=== PATIENT | female | born 1950 | race Caucasian/White ===

== ENCOUNTER 2017-10-16 09:10 | Day surgery (SDC) | payer MEDICARE, OTHER, SELFPAY ==
--- NOTE | 2017-10-08 09:45 | EKG12_ITS ---
Test Reason : PRE OP Blood Pressure : / mmHG Vent. Rate : 075 BPM Atrial Rate : 075 BPM P-R Int : 166 ms QRS Dur : 080 ms QT Int : 386 ms P-R-T Axes : 073 067 058 degrees QTc Int : 431 ms Normal sinus rhythm Normal ECG Confirmed by MARLEN NOVOA, ANNA ([id number]), magazine editor RHIANNA MIGUEL ([id number]) on 10/12/2017 2:51:55 PM Referred By: ORION Confirmed By:ANNA GEE MD
[2017-10-08 10:25] LABS: Hematocrit 46.9 % (37-47); Hemoglobin 14.5 g/dl (12.0-15.0); Mean Corp Hgb Conc 30.9 g/gl (32-36); Mean Corpuscular Hgb 28.2 pg (27.0-32.0); Mean Corpuscular Volume 91.2 fL (81-99); Mean Platelet Vol. 10.5 fl (6.2-12.0); Platelet Count 345 K/mm3 (150-450); RBC Distribution Width CV 14.5 % (11.6-14.6); RBC Distribution Width SD 48.4 fl (35.1-43.9); Red Blood Count 5.14 M/mm3 (4.2-5.4); White Blood Count 6.5 K/mm3 (4.4-11.0)
[2017-10-08 10:32] LABS: Scan Indicated on CBC? Y/N NO
[2017-10-08 10:54] LABS: Anion Gap 8 (5-15); BUN 25 mg/dL (7-18); BUN/Creat Ratio 31.6 RATIO (10-20); Calcium,Total 9.1 mg/dL (8.5-10.1); Chloride 105 mmol/L (98-107); Creatinine, Serum 0.79 mg/dL (0.55-1.02); EST Glomerular Filtration Rate 77 mL/min (>60); Est Glom Filt Rate - Afr Amer 93 mL/min (>60); Glucose 77 mg/dL (70-110); Potassium 4.1 mmol/L (3.5-5.1); Sodium Level 142 mmol/L (136-145)
--- NOTE | 2017-10-16 | LES_PTH ---
PATIENT: GOYO WAGNER LOC: [facility] U#:[id number] AGE/SX: 66/F ROOM: RE10/16/[address]: Dr. Robbin Narvaez MD : [id number] BED: DIS: 10/16/2017 SPEC #: [id number] RECD: 10/16/17 12:31 STATUS: NATALIA ROMERO #: [id number] NILAY: 10/16/17 00:[address]: Robbin Narvaez DEPT: SURGICAL PATHOLOGY RECD BY: Reva Mello ENTERED: 10/16/17 13:12 SP TYPE: Lesion OTHR DR: Dr. Julián Crowder MD Tissues: Skin of nose, NOS Procedures: Frozen Section (charge) Surgery Specimen Level IV Frozen (no charge) HEADER OPERATION: Excision, lesion, nasal, frozen section, reconstruction PRE-OP DIAGNOSIS: Basal cell carcinoma - nose TISSUE SUBMITTED: Basal cell carcinoma ? nose, suture at 12 o?clock FROZEN SECTION DIAGNOSIS Skin lesion of nose, biopsy: Ulcerated basal cell carcinoma, completely excised. AM:lalito 10/16/17 MICROSCOPIC DIAGNOSIS Skin lesion of nose, excisional biopsy: Ulcerated basal cell carcinoma, completely excised. Solar elastosis. AM:lalito 10/19/17 MICROSCOPIC DESCRIPTION Slides are reviewed. GROSS DESCRIPTION Received fresh for frozen section consultation labeled with the patient's name is a specimen designated basal cell carcinoma of nose. The specimen consists of a discoid fragment of light hussein excised skin measuring 1.5 x 1.2 x 0.2 cm. The 12 o?clock half is inked in black ink and the 6 o?clock half is inked in blue ink. The specimen is serially sectioned and totally submitted in one cassette for frozen section consultation. / AM:lalito 10/16/17 TC:0 CPT: 89212, 82214
[2017-10-16 09:43] VITALS: BP 145/86; PULSE 94; RESP 18; TEMP 36.8; O2SAT 99; BMI 27.7
--- NOTE | 2017-10-16 11:56 | PCM.DC ---
You will use the following diet at home:: Regular Discharge Activity: Return to Normal Activity Additional Activity Instructions:: Remove dressing tomorrow. Apply neosporin to sutures twice a day. May get sutures wet on Thursday. Allergies/Adverse Reactions: Allergies No Known Allergies Allergy (Verified 10/09/17 14:13) Medications to take at Discharge Acetaminophen [Tylenol] 1,000 mg PO Q8H PRN PRN tab 08/10/17 Metoprolol Tartrate [Lopressor (Beta Deborah)] 25 mg PO BID 10/09/17 Montelukast [Singulair] 10 mg PO DAILY 10/09/17 Primary Care Physician: Julián Crowder Chi, MD [Primary Care Provider] -
[2017-10-16] MEDS: Mupirocin Ointment 22gm Tube 1 APPLIC (13:07)
--- NOTE | 2017-10-16 13:37 | OP.PCM_ITS ---
Problem List (1) Basal cell carcinoma of dorsum of nose Status: Chronic Report of Operation Date of Procedure: 10/16/17 Pre-Operative Diagnosis: basal cell carcinoma, nasal dorsum Post-Operative Diagnosis: basal cell carcinoma, nasal dorsum Surgery/Procedure Performed:: excision 1 x 1cm basal cell carcinoma of nose Type of Anesthesia:: General Description of Procedure: on the day of the procedure, after appropriate informed consent was obtained, the patient was brought to the operating room and placed in supine position on the operating room table. the anesthesiologist attempted to intubate with a 6.5 endotracheal tube; this would not pass the subglottis. a 5.5 tube was then attempted again with the glide scope and would not pass the subglottis. given the previous tracheotomy, it was deemed necessary to stop attempting to intubate with her subglottic stenosis. air exchange was easy with a mask airway. we aborted the vocal cord injection was aborted. the LMA was secured, tegaderm was placed on the eyes after lubrication. the 1 x 1 cm basal cell carcinoma on the right nasal dorsum was injected with lidocaine/epinephrine. the area was prepped and draped in sterile fashion. the lesion was demarcated with 4mm margins. a [place] blade was used to excise the lesion with margins. bleeding was controlled with the bipolar. the frozen section of the given lesion was reported as margins negative, completely excised. please see dr kacey red's note for the reconstruction details. the patient Grafts/Implants Used: none - Admit VTE Documentation VTE Present on Admission: No VTE Mechan Device Prophylaxis: SCD's Reason prophylaxis not ordered:: Treatment Not Indicated
[2017-10-16 13:38] VITALS: BP 133/83; BP 145/86; PULSE 85; RESP 16; TEMP 36.6; O2SAT 97
--- NOTE | 2017-10-16 13:42 | PCM.OPRPT ---
Report of Operation Date of Procedure: 10/16/17 Pre-Operative Diagnosis: Nasal defect of the dorsum secondary to excised basal cell carcinoma Post-Operative Diagnosis: same Surgery/Procedure Performed:: Local flap reconstruction of nasal defect (1.5 x 1.2 cm) Description of Surgical Findings:: as above Type of Anesthesia:: General Anesthesiologist: Paresh Ratliff Specimen's removed: basal cell carcinoma nose. Drains: none Estimated Blood Loss (mL): minimal Description of Procedure: The patient was taken to the OR on 10/16/17. She was given sufficient general anesthesia. She had excision of the nasal basal cell carcinoma performed by Dr. Narvaez. Please see his operative note for details. The size of the defect was 1.5 x 1.2 cm. The margins were negative according to pathology. I fashioned a glabellar flap. This was incised with a 15 blade. Hemostasis was achieved with bipolar cautery. The flap was released and brought down to the defect attached laterally on the left side. The flap was thinned sharply on the right lateral edge. It was cut to the appropriate size to fill the defect. 4-0 chromic was used to approximate the subcutaneous tissue of the flap and [place] nasal tissue. 4-0 chromic was also used to approximate the subcutaneous tissue at the donor site. The skin was then closed around the flap and donor site with interrupted 6-0 nylon. Bactroban and a pressure dressing were then applied. The patient was awoken and brought to the recovery room in stable condition. Blood loss minimal, replacement none. Sponge needle and instrument count were correct at the end of the procedure.
[2017-10-16 13:45] VITALS: BP 134/88; BP 145/86; PULSE 83; RESP 16; O2SAT 93
[2017-10-16 14:00] VITALS: BP 141/98; BP 145/86; PULSE 89; RESP 16; TEMP 36.6; O2SAT 94
[2017-10-16 15:14] VITALS: BP 145/86
== END 2017-10-16 15:26 | disposition home or self-care (01) ==
LOC: SDC 09:11 → AC 09:12
PROVIDERS: Otolaryngology; Family Provider Family Medicine Geriatric Medicine; PCP Family Medicine Geriatric Medicine; Visit Provider Otolaryngology
PROC: (CPT 14060; principal; 2017-10-16 11:15)
DX: C44.311 Basal cell carcinoma of skin of nose (principal); L57.8 Other skin changes due to chronic exposure to nonionizing radiation; J38.01 Paralysis of vocal cords and larynx, unilateral; R13.14 Dysphagia, pharyngoesophageal phase; R49.0 Dysphonia; R00.0 Tachycardia, unspecified; J45.909 Unspecified asthma, uncomplicated; G47.30 Sleep apnea, unspecified; Z86.011 Personal history of benign neoplasm of the brain; Z79.899 Other long term (current) drug therapy; J38.6 Stenosis of larynx
CPT/HCPCS: 00300; 11643; 14060; 36415; 80048; 85027; 88305; 88331; J7120; J2405

== ENCOUNTER → 2017-11-09 12:31 | Outpatient (CLI) | payer MEDICARE, OTHER, SELFPAY ==
--- NOTE | 2017-11-09 12:45 | RAD_ITS ---
STUDY: X-RAY - PELVIS AND RIGHT HIP REASON FOR EXAM: Female, 66 years old. Right hip pain. TECHNIQUE: Radiological exam, hip, unilateral, with pelvis when performed; 1 view COMPARISON: None. FINDINGS: There is a non-specific bowel gas pattern. Normal visualized soft tissue structures. Disc space narrowing and mild levoscoliosis of the lower lumbar spine. There is narrowing with cortical sclerosis and osteophyte formation of the sacroiliac joint consistent with degenerative osteoarthritic changes. Normal bilateral superior and inferior pubic rami. There is narrowing with sclerosis of the pubic symphysis. Normal bilateral ischial tuberosities. Normal visualized femoral head. Normal acetabulum. There is moderate articular joint space narrowing of the hip. IMPRESSION: Moderate joint space narrowing of both hip joints. Electronically Signed: Freddie Parker MD at 8:24 EST Tel [phone], Service support , STUDY: X-RAY - PELVIS REASON FOR EXAM: Female, 66 years old. ] Pain. TECHNIQUE: One view of the pelvis was obtained. COMPARISON: None. FINDINGS: There is a non-specific bowel gas pattern. There are multiple calcified phleboliths. Degenerative changes of the lower lumbar spine. Normal bilateral iliac wings, sacroiliac joints and visualized sacrum. Normal visualized bilateral superior and inferior pubic rami. There is narrowing with sclerosis of the pubic symphysis. Normal ischial tuberosities. Normal visualized right femoral head. Normal right acetabulum. There is moderate articular joint space narrowing of the right hip. Normal visualized left femoral head. Normal left acetabulum. There is moderate articular joint space narrowing of the left hip. RAD/Hip 2-3 Views with Pelvis IMPRESSION: Degenerative changes. Electronically Signed: Freddie Parker MD at 8:26 EST Tel [phone], Service support ,
== END ==
PROVIDERS: Family Provider Family Medicine Geriatric Medicine; PCP Family Medicine Geriatric Medicine; Visit Provider Family Medicine Geriatric Medicine
DX: M16.11 Unilateral primary osteoarthritis, right hip (principal)
CPT/HCPCS: 73502

== ENCOUNTER → 2017-12-01 13:54 | Outpatient (CLI) | payer MEDICARE, OTHER, SELFPAY ==
[2017-12-01 15:12] LABS: Absolute Lymphocyte Count 2.03 X10^3/ul (0.83-4.51); Absolute Neutrophil Count 7.3 X10^3/uL (2.0-7.7); Basophil# 0.03 X10^3/uL; Basophil% 0.3 % (0-1); Eosinophil# 0.15 X10^3/uL; Eosinophils% 1.4 % (0-5); Hematocrit 48.4 % (37-47); Hemoglobin 15.5 g/dl (12.0-15.0); Lymphocyte # 2.03 X10^3/ul (4.0); Lymphocyte % 19.5 % (19-41); Mean Corpuscular Hgb 28.8 pg (27.0-32.0); Mean Corpuscular Volume 89.8 fL (81-99); Mean Platelet Vol. 10.6 fl (6.2-12.0); Monocyte# 0.88 X10^3/uL; Monocyte% 8.5 % (0-10); Neutrophil # 7.27 X10^3/uL (2.7-7.7); Platelet Count 380 K/mm3 (150-450); RBC Distribution Width CV 15.6 % (11.6-14.6); RBC Distribution Width SD 51.1 fl (35.1-43.9); Red Blood Count 5.39 M/mm3 (4.2-5.4); White Blood Count 10.4 K/mm3 (4.4-11.0)
[2017-12-01 15:13] LABS: POSITIVE COUNT NO; POSITIVE DIFFERENTIAL NO; POSITIVE MORPHOLOGY NO
[2017-12-01 15:33] LABS: ALB/GLOB Ratio 1.1 RATIO (0.9-2.4); AST(SGOT) 15 U/L (15-37); Alanine Aminotransfer ALT/SGPT 13 U/L (13-56); Alkaline Phosphatase 141 U/L (45-117); Anion Gap 7 (5-15); BUN 27 mg/dL (7-18); BUN/Creat Ratio 35.3 RATIO (10-20); Calcium,Total 9.4 mg/dL (8.5-10.1); Chloride 104 mmol/L (98-107); Creatinine, Serum 0.76 mg/dL (0.55-1.02); EST Glomerular Filtration Rate 80 mL/min (>60); Est Glom Filt Rate - Afr Amer 97 mL/min (>60); Globulin 3.8 g/dL (2.2-4.2); Glucose 90 mg/dL (74-106); Potassium 4.2 mmol/L (3.5-5.1); Protein, Total 7.8 g/dL (6.4-8.2); Sodium Level 140 mmol/L (136-145); Thyroid Stim Hormone (TSH) 2.24 uIU/mL (0.358-3.74)
[2017-12-02 09:38] LABS: Vitamin D,25 Hydroxy 35.3 ng/mL (29.95-100.01)
== END ==
PROVIDERS: Family Provider Family Medicine Geriatric Medicine; PCP Family Medicine Geriatric Medicine; Visit Provider Family Medicine Geriatric Medicine
DX: E55.9 Vitamin D deficiency, unspecified (principal); R53.83 Other fatigue
CPT/HCPCS: 36415; 80053; 82306; 84443; 85025

== ENCOUNTER → 2017-12-01 14:28 | Outpatient (CLI) | payer MEDICARE, OTHER, SELFPAY ==
--- NOTE | 2017-12-01 14:30 | CT_ITS ---
STUDY: CT BRAIN WITHOUT CONTRAST REASON FOR EXAM: Female, 67 years old. Follow-up of meningioma. The patient had surgical removal of the meningioma May 2017. RADIATION DOSAGE (If Supplied By Facility): CTDIvol = ( 44.99 ) mGy, DLP = ( 745.49 ) mGycm TECHNIQUE: Transaxial CT imaging of the brain was performed without administration of intravenous contrast material. Multiplanar reformations are submitted for interpretation. Individualized dose optimization techniques were used for this CT. COMPARISON: Prior comparable comparison studies are not available for review at this time. FINDINGS: Normal soft tissue structures. Patient has had a right-sided suboccipital craniectomy. There has been a cranioplasty with placement of a plate across the craniectomy site. Normal size ventricles and extra-axial spaces for the patient's age. There are areas of decreased attenuation within the white matter tracts of the supratentorial brain, consistent with microvascular disease changes. Normal basal ganglia and thalami. Normal brainstem. Normal cerebellum. There is no intracranial hemorrhage. There is mild atherosclerotic calcification of intracranial arteries. Normal visualized paranasal sinuses. CT/Brain/Head without Contrast IMPRESSION: 1. Chronic involutional changes of the brain. 2. Postoperative changes of the brain. There is no CT evidence to suggest residual or recurrent meningioma. Electronically Signed: Tracy Trinidad MD at 14:58 EDT , Service support ,
== END ==
PROVIDERS: Family Provider Family Medicine Geriatric Medicine; PCP Family Medicine Geriatric Medicine; Visit Provider Family Medicine Geriatric Medicine
DX: D32.0 Benign neoplasm of cerebral meninges (principal); E55.9 Vitamin D deficiency, unspecified; R53.83 Other fatigue
CPT/HCPCS: 36415; 70450; 80053; 82306; 84443; 85025

== ENCOUNTER → 2018-04-01 07:34 | Outpatient (CLI) | payer MEDICARE, OTHER, SELFPAY ==
--- NOTE | 2018-04-01 11:24 | BRONCHALL ---
Bronchoprovocation Challenge - Bronchoprovocation Challenge Bronchoprovocation Challenge: BRONCHOPROVOCATION STUDY INTERPRETATION Brief HPI: Patient is a 67 year old fe-male, currently under the care of Carlee Cabral, who presents to [facility] for a bronchoprovocation study secondary to diagnosis of asthma. Respiratory therapist reports good effort and reproducible results. Interpretation: Initial spirometry showed no large airways obstructive ventilatory defect. The patient was then given increasingly concentrated doses of methacholine in a stepwise fashion, using a modified ATS protocol. The patient had a significant reduction in FEV1 by 32% and a calculated PD20 of 0.094. Impression: Positive bronchoprovocation study. This IS CONSISTENT with the diagnosis of asthma.
--- NOTE | 2018-04-01 11:27 | BRONCHALL_ITS ---
Bronchoprovocation Challenge - Bronchoprovocation Challenge Bronchoprovocation Challenge: BRONCHOPROVOCATION STUDY INTERPRETATION Brief HPI: Patient is a 67 year old fe-male, currently under the care of Carlee Cabral, who presents to [facility] for a bronchoprovocation study secondary to diagnosis of asthma. Respiratory therapist reports good effort and reproducible results. Interpretation: Initial spirometry showed no large airways obstructive ventilatory defect. The patient was then given increasingly concentrated doses of methacholine in a stepwise fashion, using a modified ATS protocol. The patient had a significant reduction in FEV1 by 32% and a calculated PD20 of 0.094. Impression: Positive bronchoprovocation study. This IS CONSISTENT with the diagnosis of asthma.
== END ==
PROVIDERS: Family Provider Family Medicine Geriatric Medicine; PCP Family Medicine Geriatric Medicine
DX: J45.40 Moderate persistent asthma, uncomplicated (principal)
CPT/HCPCS: 94070; 95070; J3490; J7674

== ENCOUNTER 2018-05-17 11:30 | Outpatient (RCR) | payer MEDICARE, OTHER, SELFPAY ==
--- NOTE | 2018-03-19 17:19 | HP.PTEVAL_ITS ---
Patient's Visit Information GOYO WAGNER is a 67 year old F referred to Physical Therapy by Julián Crowder with a diagnosis of OA AND PAIN RIGHT HIP. Date of Evaluation: 03/19/18 Physical Therapist: Keke Church - Visit Plan Frequency: 2-3x /Week Duration: 4-6 Weeks Plan: AQUATIC THERAPY FOR PAIN RELEIF, POSTURE CORRECTION/STRENGTHENING, INSTRUCTION IN APPROPRIATE BODY MECHANICS AND ACTIVITY MODIFICATIONS. DLS STARTING WITH A NEUTRAL SPINE PROGRESSING ROM TOLERATED. INDIGO LE ROM, STRETCHING AND STRENGTHENING. HEP INSTRUCTION. - Subjective Subjective: Work/Leisure: RETIRED. Disability: NO. Present symptoms: RIGHT HIP PAIN AND POSTERIOR THIGH PAIN. SPASMS UP BACK AND DOWN INTO THIGH RIGHT ONLY. PATIENT REPORTS SHE IS EXHAUSED FROM IT. NO RIGHT LE NUMBNESS OR TINGLING. LLE FEELS NORMAL. Present since: SEP 2017. Pain Scale: WORST 8/ 10, LEAST 2/10. Currently: 10/31. Commenced as a result of: BRAIN TUMOR SURGERY JUN 17 2017. Symptoms at onset: RIGHT HIP. Worse: WALKING, PROLONGED SITTING. Better: MAYBE PUTTING WEIGHT ON RIGHT HIP IN SITTING OR LYING. Disturbed sleep: YES. Previous history/Previous treatment: UNREMARKABLE BUT STATES SHE KNEW SHE HAD ARTHRITIS BUT DIDN'T REALLY HAVE ANY SPECIFIC PAIN. Coughing/sneezing/straining: NEGATIVE. Gait: PATIENT REPORTS SHE HAS A CANE AND SHE USES IT WITH PROLONGED WALKING USUALLY BUT NOT ALWAYS. LEFT IT IN HER CAR TODAY. WALKING PUTS A LOT OF STRESS ON HER RIGHT BACK, HIP AND KNEE. Difficulty initiating urinatin: NO. Accidents: NO. Unexplained weight loss: NO. Imaging: OCT 2017 RIGHT HIP X-RAY: Moderate joint space narrowing of both hip joints. PMH: DX'D WITH BRAIN TUMOR MAY 2017 FOLLOWED BY SURGERY FOR REMOVAL. NON CANCEROUS. SLEEP APNEA. Recent major surgery: RECENT BRAIN SURGERY FOLLOWED BY HOSPITALIZATIONS X ABOUT 2 MONTHS. SHE REPORTS SHE WAS ON A VENTILATOR AND TRACH AFTER SURGERY. SOCIAL: LIVES ALONE. - Objective Sitting/Standing Posture: POOR. INCREASED KYPHOSIS. Lordosis: REDUCED. Lateral shift: NO. Relevant shift: N/A. Active Correction of posture: NE. Other Observations: INDEP GAIT INTO PT WITH SLOW ANTALGIC GAIT PATTERN WITH INCREASED TRUNK FLEXION AND DECREASED INDIGO STRIDE LENGTH AND NO AD'S. DECREASED WEIGHT BEARING TIME ON BENT RIGHT LE. Motor deficit: LLE 5/5 WITH MMT'ING EXCEPT HIP GRADED 4/5. RIGHT LE: HIP 3-/5, KNEE EXT 3-/5, KNEE FLEX 4/5 IN AVAILABLE ROM AND ANKLE DORSIFLEX 5/5. Sensory deficit: INDIGO LE LIGHT TOUCH SENSATION APPEARS TO BE INTACT AND SYMMETRICAL. ROM deficit: ONLY ABLE TO FLEX RIGHT HIP TO 90 DEG IN LYING. TIGHT RIGHT HIP INTERNAL ROTATION AND EXTERNAL ROTATION THAT IS DIFFICULT TO TEST DUE TO PAIN AND DISCOMFORT IN LYING. RIGHT KNEE ROM = -40 DEG EXT TO 118 DEG FLEX. EXT OF THE KNEE WAS MEASURED IN LEFT SDLY AND KNEE FLEX WAS MEASURED IN SITTING. LEFT HIP AND KNEE ROM WFL AND NOT PAINFULL WITH TESTING. Reflexes: INDIGO LE DTR'S 1/2. Dural Signs: POSITIVE RIGHT LE DURAL SIGN. Lumbar mvmt loss: flex - MOD. ext - ELYSE. R SG - ELYSE. L SG - ELYSE. PATIENT HAS C/O PAIN WITH LUMBAR ROM TESTING ALL PLANES. Core strength: POOR. Palpation: TIGHT AND TENDER RIGHT HS REGION. PATIENT IS ALSO TENDER IN THE LUMBAR SPINE, SACRUM, RIGHT PARASPINALS AND RIGHT HIP REGIONS. SHE IS NOT TENDER IN THE THORACIC SPINE. - Goals Goal 1:: DECREASE C/O RIGHT BACK, HIP AND THIGH PAIN/SPASMS Goal Time Frame: 4-6 Weeks Goal 2:: IMPROVE PERSONAL CARE, LIFTING, WALKING, STANDING, SITTING, SLEEP, SOCIAL LIFE, TRAVEL AND HOMEMAKING FUNCTION Goal Time Frame: 4-6 Weeks Goal 3:: INSTRUCT IN PROPHYLAXIS/HEP Goal Time Frame: 4-6 Weeks - Rehabilitation Potential Rehabilitation Potential: Fair - Anticipated Interventions Patient/Client Instruction: Educate patient on: Condition, Plan of Care, Risk Factors, Benefits of Fitness Program For the Purpose of:: To improve self management Therapeutic Exercise to Include: Strength training, Balance training, Body mechanics, Postural training, Flexibilty training, Gait and locomotor training, In an aquatic setting, Active ROM, Dynamic Lumbar Stabilization For the Purpose of:: To decrease pain, To increase ROM, To improve muscle performance and motor function, To improve ability to perform ADL's, To increase tolerance to activity/condition/position, To improve ability of physical actions for home/community/work/leisure, To improve gait and locomotor functions Thank you for the opportunity to evaluate your patient. For Medicare and Medicare HMO plans, please review the plan of care and approve it. It will need to be FAXED BACK to us at [phone] for Medicare purposes. Please let me know if there are questions or concerns regarding this plan of care. Physician Signature: Date:
--- NOTE | 2018-04-16 14:30 | HP.PTREVAL_ITS ---
Julián Chi Vel, It has been my pleasure to treat GOYO WAGNER over the last 10 visits for OA AND PAIN RIGHT HIP. Please see the progress note below for an update on the physical therapy plan of care! Subjective: PATIENT REPORTS SHE HAS FEELS A LOT BETTER BECAUSE SHE HAS BEEN DOING THE WATER EX'S AND IT HAS HELPED HER A LOT BUT SHE STILL HAS MUSCLE SPASMS IN THE RIGHT LEG AND BACK (HAMSTRING PULLING UP THROUGH ABDOMEN AND BACK) . SHE REPORTS THE MUSCLE SPASMS HAVE SLOWED DOWN THOUGH. SHE ALSO REPORTS SHE IS SLEEPING BETTER. SHE REPORTS IT IS SUCH A RELEIF ON HER BACK WHEN SHE DOES THE WATER THERAPY. SHE REPORTS SHE WOULD REALLY LIKE TO CONTINUE PT TO LEARN MANY EX'S POSSIBLE AND TO BE SURE SHE IS DOING IT RIGHT BEFORE TRYING ON HER OWN. PATIENT REPORTS SHE HASN'T BEEN DOING THE EX'S THAT WE HAVE GIVEN HER FOR HOME MUCH SHE SHOULD BUT THE PT APPOINTMENTS SEEM TO TAKE A LOT OUT OF HER. Objective/Function: PATIENT IS IMPROVING. SHE IS MAKING SLOW PROGRESS TOWARD ALL SET PT GOALS. RECOMMENDED ROLLATOR FOR SAFETY AND IMPROVED GAIT MECHANICS. SHE IS OPEN TO CONSIDERING THE ROLLATOR. INDEP GAIT INTO PT WITH SLOW ANTALGIC GAIT PATTERN WITH INCREASED TRUNK FLEXION AND DECREASED INDIGO STRIDE LENGTH EVEN WITH HER STRAIGHT CANE. SHE HAD MINOR LOSS OF BALANCE A COUPLE TIMES THAT SHE CORRECTED INDEP'LY. DECREASED WEIGHT BEARING TIME ON BENT RIGHT LE. Motor deficit: RIGHT LE: HIP 4-/5, KNEE EXT 3+/5, KNEE FLEX 4/5 IN AVAILABLE ROM AND ANKLE DORSIFLEX 5/5. MMT'ING OF RIGHT KNEE FLEX DOES NOT PROVOKE INCREASED PAIN IN HS REGION. Sensory deficit: INDIGO LE LIGHT TOUCH SENSATION APPEARS TO BE INTACT AND SYMMETRICAL. ROM deficit: STILL ONLY ABLE TO FLEX RIGHT HIP TO 90 DEG IN LYING. PATIENT ALSO STILL HAS TIGHT RIGHT HIP INTERNAL ROTATION AND EXTERNAL ROTATION AND IT IS MUCH EASIER TO TEST TODAY BECAUSE PATIENT IS COMFORTABLE IN SUPINE LYING NOW. RIGHT KNEE ROM = -42 DEG EXT TO 117 DEG FLEX IN SUPINE WITH A HEEL SLIDE. Dural Signs: POSITIVE RIGHT LE DURAL SIGN. Lumbar mvmt loss: flex - MIN TO MOD. ext - ELYSE - UNALBE TO QUITE GET UP TO A NEUTRAL POSITION YET. PATIENT C/O PULLING IN RIGHT LEG WHEN SHE TRIES TO STAND UP STRAIGHT. R SG - ELYSE. L SG - ELYSE. PATIENT REPORTS RIGHT LEG PAIN AND BACK PAIN INCREASE WHEN TRYING TO STAND UP STRAIGHT. Core strength: POOR. Palpation: TIGHT AND TENDER RIGHT HS REGION. PATIENT IS ALSO TENDER IN THE LUMBAR SPINE, SACRUM, RIGHT PARASPINALS AND RIGHT HIP REGIONS. SHE IS NOT TENDER IN THE THORACIC SPINE. OTHER: PATIENT IS UNABLE TO INDEP'LY TRANSFER FORM SIT TO STAND WITHOUT UE ASSIST. IT IS DIFFICULT FOR HER TO INITIATE GAIT AFTER SITTING. SHE STANDS WITH RIGHT KNEE FLEX AND MOST WEIGHT BEARED ON LLE. INDEP TRANSFERS SIT TO SUPINE AND REVERSE. PATIENT IS ABLE TO SLS ON EACH LEG WITHOUT UE ASSIST FOR A FEW SECONDS. Plan Plan: RECOMMEND CONTINUE PT FOR AQUATIC THERAPY PROGRESSING TOLERATED PER ORIGINAL POC. CONTINUE 3X'S A WEEK X 2 WEEKS THEN DECREASE TO 2X'S A WEEK WHILE PATIENT BEGINS INDEP EX A SILVER SNEAKER MEMBER. PATIENT IS AGREEABLE. Goals Goal 1:: DECREASE C/O RIGHT BACK, HIP AND THIGH PAIN/SPASMS Goal Time Frame: 4-6 Weeks Goal Progress: Progressing Goal 2:: IMPROVE PERSONAL CARE, LIFTING, WALKING, STANDING, SITTING, SLEEP, SOCIAL LIFE, TRAVEL AND HOMEMAKING FUNCTION Goal Time Frame: 4-6 Weeks Goal Progress: Progressing Goal 3:: INSTRUCT IN PROPHYLAXIS/HEP Goal Time Frame: 4-6 Weeks Goal Progress: Progressing Anticipated Interventions Patient/Client Instruction: Educate patient on: Condition, Plan of Care, Risk Factors, Benefits of Fitness Program For the Purpose of:: To improve self management Therapeutic Exercise to Include: Strength training, Balance training, Body mechanics, Postural training, Flexibilty training, Gait and locomotor training, In an aquatic setting, Active ROM, Dynamic Lumbar Stabilization For the Purpose of:: To decrease pain, To increase ROM, To improve muscle performance and motor function, To improve ability to perform ADL's, To increase tolerance to activity/condition/position, To improve ability of physical actions for home/community/work/leisure, To improve gait and locomotor functions Please do not hesitate to contact me at [phone] by phone or Fax: if you have questions or concerns regarding this new plan of care! Sincerely, Keke Church
--- NOTE | 2018-05-17 12:19 | HP.PTDCSUM_ITS ---
HP - PT D/C Summary It has been my pleasure to treat GOYO WAGNER under orders from Julián Crowder, for the diagnosis of OA AND PAIN RIGHT HIP for a total of 18 visit(s). Discharge Date: Please see the following information for a summary of their discharge status. - Subjective Subjective: PATIENT REPORTS SHE HAS NOTICED HER FLEXABILITY IS BETTER THAN IT WAS SINCE SHE STARTED PT AND SHE STATES SHE EVEN SLEEPS BETTER. PATIENT REPORTS THE EX IN THE POOL REALLY HELPS HER. PATIENT HER PAIN RIGHT NOW IS TYPICAL AFTER NOT BEING IN THE POOL FOR 5 DAYS. HER PAIN IS RANGING 0/10 TO 6/ 10. PATIENT REPORTS SHE SIGNED UP FOR [employer] AND SHE WOULD LIKE TO USE THE POOL WITH HER MEMBERSHIP AND SHE IS GOING TO TRY TO GET IN THE POOL THURSDAY AND THURSDAY THIS WEEK. PATIENT REPORTS COMPLIANCE WITH HER HEP. PATEINT REPORTS USING LUMBAR SUPPORT HELPS A LOT TOO. HAS NOT PURCHASED A ROLLATOR. PATIENT REPORTS THE POOL THERAPY HAS HELPED HER MORE THAN ANYTHING ELSE HAS. - Pain right hip Pain Intensity (Out of 10): 6 Lumbar Spine Pain Intensity (Out of 10): 6 - Overall Improvement % Improvement: 50 - Objective Objective/Function: PATIENT HAS MADE PROGRESS TOWARD ALL SET PT GOALS BUT SHE IS NOT CONTINUING TO IMPORVE. SHE IS NOW INDEP WITH A POOL PROGRAM AND HAS A [employer] MEMBERSHIP TO CONTINUE. ROLLATOR STILL RECOMMENDED AND PATIENT STATES SHE WILL STILL CONSIDER IT. INDEP GAIT INTO PT WITH SLOW ANTALGIC GAIT PATTERN WITH INCREASED TRUNK FLEXION AND DECREASED INDIGO STRIDE LENGTH EVEN WITH HER STRAIGHT CANE. HER CANE IS TOO HIGH AND SHE REPORTS SHE JUST CHANGED IT TO TRY TO HELP HER STAND UP STRAIGHTER. SHE WAS AGREEABLE TO THIS PT UNJUSTING IT BACK TO PROPER HEIGHT. SHE HAD MINOR LOSS OF BALANCE A COUPLE TIMES AGAIN THAT SHE CORRECTED INDEP'LY. DECREASED WEIGHT BEARING TIME ON BENT RIGHT LE CONTINUES. Motor deficit: RIGHT LE: HIP 4-/5, KNEE EXT 3-/5, KNEE FLEX 4/5 IN AVAILABLE ROM AND ANKLE DORSIFLEX 5/5. MMT'ING OF RIGHT KNEE FLEX DOES NOT PROVOKE INCREASED PAIN IN HS REGION OTHER THAN JUST TOUCHING IT INCREASES THE PAIN. Sensory deficit: INDIGO LE LIGHT TOUCH SENSATION APPEARS TO BE INTACT AND SYMMETRICAL HOWEVER LIGHT TOUCH OF RIGHT LE CAUSES C/O PULLING THROUGH HIP AND BACK. ROM deficit: STILL ONLY ABLE TO FLEX RIGHT HIP TO 90 DEG IN LYING. RIGHT KNEE ROM = -43 DEG EXT TO 122 DEG FLEX IN SUPINE WITH A HEEL SLIDE. Dural Signs: POSITIVE RIGHT LE DURAL SIGN. Lumbar mvmt loss: flex - MIN TO MOD. ext - ELYSE - UNALBE TO QUITE GET UP TO A NEUTRAL POSITION YET. PATIENT C/ O PULLING IN RIGHT LEG WHEN SHE TRIES TO STAND UP STRAIGHT. R SG - ELYSE. L SG - ELYSE. PATIENT REPORTS RIGHT LEG PAIN AND BACK PAIN INCREASE WHEN TRYING TO STAND UP STRAIGHT. Core strength: POOR. Palpation: TIGHT AND TENDER RIGHT HS REGION. PATIENT IS ALSO TENDER IN THE LUMBAR SPINE, SACRUM, RIGHT PARASPINALS AND RIGHT HIP REGIONS. SHE IS NOT TENDER IN THE THORACIC SPINE. OTHER: PATIENT IS UNABLE TO INDEP'LY TRANSFER FORM SIT TO STAND WITHOUT UE ASSIST. IT IS DIFFICULT FOR HER TO INITIATE GAIT AFTER SITTING. SHE STANDS WITH RIGHT KNEE FLEX AND MOST WEIGHT BEARED ON LLE. INDEP TRANSFERS SIT TO SUPINE AND REVERSE. PATIENT IS ABLE TO SLS ON EACH LEG WITHOUT UE ASSIST FOR A FEW SECONDS. LUMBAR OSWESTRY HAS ONLY IMPROVED FROM 26 TO 25. - Goals Goal 1:: DECREASE C/O RIGHT BACK, HIP AND THIGH PAIN/SPASMS Goal Progress: Not Progressing Goal 2:: IMPROVE PERSONAL CARE, LIFTING, WALKING, STANDING, SITTING, SLEEP, SOCIAL LIFE, TRAVEL AND HOMEMAKING FUNCTION Goal Progress: Not Progressing Goal 3:: INSTRUCT IN PROPHYLAXIS/HEP Goal Progress: Goal Met - Plan Plan: D/C TO INDEP POOL PROGRAM AND HEP. RECOMMEND PHYSICIAN FOLLOW UP AND ROLLATOR. PATIENT IS AGREEABLE. - D/C Information If there are questions or concerns regarding this patient's physical therapy, please feel free to call me at [phone]. Thank you for the referral of this patient. Sincerely, Keke Church
== END 2018-05-17 12:50 | disposition home or self-care (01) ==
LOC: PT 11:30
PROVIDERS: Family Provider Family Medicine Geriatric Medicine; PCP Family Medicine Geriatric Medicine; Visit Provider Family Medicine Geriatric Medicine
DX: M16.11 Unilateral primary osteoarthritis, right hip (principal)
CPT/HCPCS: 97113; 97162; 97164; 97530

== ENCOUNTER → 2018-05-20 15:57 | Outpatient (CLI) | payer MEDICARE, OTHER, SELFPAY ==
[2018-05-20 17:28] LABS: Absolute Lymphocyte Count 1.72 X10^3/ul (0.83-4.51); Absolute Neutrophil Count 4.4 X10^3/uL (2.0-7.7); Basophil# 0.03 X10^3/uL; Basophil% 0.4 % (0-1); Eosinophil# 0.18 X10^3/uL; Eosinophils% 2.5 % (0-5); Hematocrit 47.5 % (37-47); Hemoglobin 15.2 g/dl (12.0-15.0); Lymphocyte # 1.72 X10^3/ul (4.0); Lymphocyte % 23.9 % (19-41); Mean Corpuscular Hgb 30.7 pg (27.0-32.0); Mean Platelet Vol. 10.8 fl (6.2-12.0); Monocyte# 0.84 X10^3/uL; Monocyte% 11.7 % (0-10); Neutrophil % 61.2 % (47-70); Platelet Count 301 K/mm3 (150-450); RBC Distribution Width CV 13.3 % (11.6-14.6); RBC Distribution Width SD 46.1 fl (35.1-43.9); Red Blood Count 4.95 M/mm3 (4.2-5.4); White Blood Count 7.2 K/mm3 (4.4-11.0)
[2018-05-20 17:30] LABS: POSITIVE COUNT NO; POSITIVE DIFFERENTIAL NO; POSITIVE MORPHOLOGY NO
[2018-05-20 17:53] LABS: ALB/GLOB Ratio 1.1 RATIO (0.9-2.4); AST(SGOT) 17 U/L (15-37); Alanine Aminotransfer ALT/SGPT 14 U/L (13-56); Albumin, Serum 3.9 g/dL (3.2-5.0); Alkaline Phosphatase 86 U/L (45-117); Anion Gap 7 (5-15); BUN 21 mg/dL (7-18); Calcium,Total 9.1 mg/dL (8.5-10.1); Chloride 104 mmol/L (98-107); Creatinine, Serum 0.84 mg/dL (0.55-1.02); EST Glomerular Filtration Rate 72 mL/min (>60); Est Glom Filt Rate - Afr Amer 87 mL/min (>60); Globulin 3.5 g/dL (2.2-4.2); Glucose 90 mg/dL (74-106); Potassium 5.2 mmol/L (3.5-5.1); Protein, Total 7.4 g/dL (6.4-8.2); Sodium Level 140 mmol/L (136-145); Thyroid Stim Hormone (TSH) 1.21 uIU/mL (0.358-3.74)
[2018-05-21 09:14] LABS: Vitamin D,25 Hydroxy 17.8 ng/mL (29.95-100.01)
== END ==
PROVIDERS: Family Provider Family Medicine Geriatric Medicine; PCP Family Medicine Geriatric Medicine; Visit Provider Family Medicine Geriatric Medicine
DX: E55.9 Vitamin D deficiency, unspecified (principal); R53.83 Other fatigue
CPT/HCPCS: 36415; 80053; 82306; 84443; 85025

== ENCOUNTER → 2018-06-11 10:21 | Outpatient (CLI) | payer MEDICARE, OTHER, SELFPAY ==
[2018-06-11 12:16] LABS: Anion Gap 6 (5-15); BUN 26 mg/dL (7-18); BUN/Creat Ratio 33.1 RATIO (10-20); Calcium,Total 9.2 mg/dL (8.5-10.1); Chloride 104 mmol/L (98-107); Creatinine, Serum 0.79 mg/dL (0.55-1.02); EST Glomerular Filtration Rate 77 mL/min (>60); Est Glom Filt Rate - Afr Amer 94 mL/min (>60); Glucose 97 mg/dL (74-106); Potassium 4.6 mmol/L (3.5-5.1); Sodium Level 141 mmol/L (136-145)
== END ==
PROVIDERS: Family Provider Family Medicine Geriatric Medicine; PCP Family Medicine Geriatric Medicine; Visit Provider Family Medicine Geriatric Medicine
DX: E87.5 Hyperkalemia (principal)
CPT/HCPCS: 36415; 80048

== ENCOUNTER → 2018-06-14 09:02 | Outpatient (CLI) | payer MEDICARE, OTHER, SELFPAY ==
--- NOTE | 2018-06-14 09:30 | RAD_ITS ---
PROCEDURE: Fluoroscopic guided Hip Injection DATE: June 14, 2018. INDICATION: Female, 67 years old. Right hip osteoarthritis. PHYSICIAN: Freddie Parker M.D. MEDICATIONS: 6 mg of betamethasone and 3 cc of 1% lidocaine. 2% lidocaine administered subcutaneously for local anesthesia. ACCESS SITE: Right hip. NEEDLE: 22-gauge spinal needle. FLUOROSCOPY TIME (if supplied): (0:33) minutes/seconds FINDINGS: The risks, benefits, and alternatives to the procedure were explained to the patient. The specific risks of bleeding, infection, and neurovascular injury were detailed and accepted. Witnessed informed consent was obtained. A 22-gauge spinal needle was positioned under radiographic fluoroscopic localization. Approximately 2 cc of Isovue-300 instilled for localization purposes. Medication was then injected. The patient tolerated the procedure well without any immediate complications. The patient was placed supine with head elevated and returned to the floor in stable condition. RAD/Inj/Asp [place] Jt Should/Hip/Knee IMPRESSION: 1. Successful fluoroscopic guided hip injection. Electronically Signed: Freddie Parker MD at 10:38 EDT Tel [phone], Service support ,
== END ==
PROVIDERS: Family Provider Family Medicine Geriatric Medicine; PCP Family Medicine Geriatric Medicine; Visit Provider Specialist
DX: M16.11 Unilateral primary osteoarthritis, right hip (principal)
CPT/HCPCS: 20610; 77002; Q9967; J0702

== ENCOUNTER → 2018-08-26 10:26 | Outpatient (CLI) | payer MEDICARE, OTHER, SELFPAY ==
[2018-08-26 12:36] LABS: Absolute Lymphocyte Count 1.09 X10^3/ul (0.83-4.51); Absolute Neutrophil Count 3.7 X10^3/uL (2.0-7.7); Basophil# 0.02 X10^3/uL; Basophil% 0.4 % (0-1); Eosinophil# 0.19 X10^3/uL; Eosinophils% 3.4 % (0-5); Hematocrit 47.2 % (37-47); Hemoglobin 14.8 g/dl (12.0-15.0); Lymphocyte # 1.09 X10^3/ul (4.0); Lymphocyte % 19.2 % (19-41); Mean Corp Hgb Conc 31.4 g/gl (32-36); Mean Corpuscular Hgb 30.2 pg (27.0-32.0); Mean Corpuscular Volume 96.3 fL (81-99); Mean Platelet Vol. 10.8 fl (6.2-12.0); Monocyte# 0.69 X10^3/uL; Monocyte% 12.2 % (0-10); Neutrophil # 3.66 X10^3/uL (2.7-7.7); Neutrophil % 64.4 % (47-70); Platelet Count 311 K/mm3 (150-450); RBC Distribution Width CV 13.4 % (11.6-14.6); RBC Distribution Width SD 46.3 fl (35.1-43.9); White Blood Count 5.7 K/mm3 (4.4-11.0)
[2018-08-26 12:39] LABS: POSITIVE COUNT NO; POSITIVE DIFFERENTIAL NO; POSITIVE MORPHOLOGY NO
[2018-08-26 12:53] LABS: Vitamin D,25 Hydroxy 60.4 ng/mL (29.95-100.01)
[2018-08-26 12:54] LABS: ALB/GLOB Ratio 1.3 RATIO (0.9-2.4); AST(SGOT) 15 U/L (15-37); Alanine Aminotransfer ALT/SGPT 15 U/L (13-56); Albumin, Serum 3.9 g/dL (3.2-5.0); Alkaline Phosphatase 96 U/L (45-117); Anion Gap 5 (5-15); BUN 24 mg/dL (7-18); BUN/Creat Ratio 27.8 RATIO (10-20); Calcium,Total 9.1 mg/dL (8.5-10.1); Chloride 104 mmol/L (98-107); Creatinine, Serum 0.86 mg/dL (0.55-1.02); EST Glomerular Filtration Rate 69 mL/min (>60); Est Glom Filt Rate - Afr Amer 84 mL/min (>60); Globulin 3.1 g/dL (2.2-4.2); Glucose 54 mg/dL (74-106); Potassium 4.6 mmol/L (3.5-5.1); Sodium Level 142 mmol/L (136-145); Thyroid Stim Hormone (TSH) 1.86 uIU/mL (0.358-3.74)
== END ==
PROVIDERS: Family Provider Family Medicine Geriatric Medicine; PCP Family Medicine Geriatric Medicine; Visit Provider Family Medicine Geriatric Medicine
DX: E55.9 Vitamin D deficiency, unspecified (principal); R53.83 Other fatigue
CPT/HCPCS: 36415; 80053; 82306; 84443; 85025

== ENCOUNTER → 2018-11-25 13:13 | Outpatient (CLI) | payer MEDICARE, OTHER, SELFPAY ==
[2018-11-25 17:15] LABS: Absolute Lymphocyte Count 0.53 X10^3/ul (0.83-4.51); Absolute Neutrophil Count 5.3 X10^3/uL (2.0-7.7); Basophil# 0.02 X10^3/uL; Basophil% 0.3 % (0-1); Eosinophil# 0.12 X10^3/uL; Eosinophils% 1.8 % (0-5); Hematocrit 48.4 % (37-47); Hemoglobin 14.8 g/dl (12.0-15.0); Lymphocyte # 0.53 X10^3/ul (4.0); Lymphocyte % 7.7 % (19-41); Mean Corp Hgb Conc 30.6 g/gl (32-36); Mean Corpuscular Hgb 29.8 pg (27.0-32.0); Mean Corpuscular Volume 97.6 fL (81-99); Mean Platelet Vol. 10.6 fl (6.2-12.0); Monocyte# 0.87 X10^3/uL; Monocyte% 12.7 % (0-10); Neutrophil # 5.27 X10^3/uL (2.7-7.7); Neutrophil % 77.1 % (47-70); Platelet Count 274 K/mm3 (150-450); RBC Distribution Width CV 13.1 % (11.6-14.6); RBC Distribution Width SD 46.2 fl (35.1-43.9); Red Blood Count 4.96 M/mm3 (4.2-5.4); White Blood Count 6.8 K/mm3 (4.4-11.0)
[2018-11-25 17:30] LABS: ALB/GLOB Ratio 1.3 RATIO (0.9-2.4); AST(SGOT) 19 U/L (15-37); Alanine Aminotransfer ALT/SGPT 11 U/L (13-56); Alkaline Phosphatase 112 U/L (45-117); Anion Gap 9 (5-15); BUN 20 mg/dL (7-18); Calcium,Total 9.3 mg/dL (8.5-10.1); Chloride 104 mmol/L (98-107); EST Glomerular Filtration Rate 76 mL/min (>60); Est Glom Filt Rate - Afr Amer 91 mL/min (>60); Globulin 3.1 g/dL (2.2-4.2); Glucose 97 mg/dL (74-106); Protein, Total 7.1 g/dL (6.4-8.2); Sodium Level 142 mmol/L (136-145); Thyroid Stim Hormone (TSH) 1.25 uIU/mL (0.358-3.74)
[2018-11-25 18:01] LABS: Vitamin D,25 Hydroxy 32.6 ng/mL (29.95-100.01)
[2018-11-25 18:05] LABS: Differential Indicated SCAN CRITERIA MET; POSITIVE COUNT NO; POSITIVE DIFFERENTIAL YES; POSITIVE MORPHOLOGY NO
[2018-11-25 18:24] LABS: Platelet Estimate ADEQUATE (ADEQ)
[2018-11-25 18:25] LABS: Anisocytosis 1+; Macrocytosis 1+
== END ==
PROVIDERS: Family Provider Family Medicine Geriatric Medicine; PCP Family Medicine Geriatric Medicine; Visit Provider Family Medicine Geriatric Medicine
DX: E55.9 Vitamin D deficiency, unspecified (principal); R53.83 Other fatigue; N39.0 Urinary tract infection, site not specified
CPT/HCPCS: 36415; 80053; 82306; 84443; 85025; 87086; 87088; 87186